=== PATIENT | female | born 1990 | race Caucasian/White ===

== ENCOUNTER 2017-09-04 13:21 | Emergency (ER) | payer OTHER ==
[~2017-09-04] VITALS: Ht 152.4 cm; Wt 61.6 kg
[2017-09-04 13:50] VITALS: BP 112/70
[2017-09-04 14:18] LABS: HEMATOCRIT 44.2 % (36.0-46.0); MCH 29.1 PG (29.0-34.0); MCHC 33.9 G/DL (30.0-36.0); MCV 85.7 FL (83-99); PLATELET COUNT 245 K/uL (156-360); RBC DIS.WIDTH-CV 12.5 % (11.8-14.6); RBC DIS.WIDTH-SD 39.4 % (39-53); RED BLOOD COUNT 5.16 M/uL (3.80-5.20); WHITE BLOOD COUNT 8.1 K/uL (4.1-10.2)
[2017-09-04 14:26] LABS: CHLORIDE 104 mEq/L (99-109); POTASSIUM 3.4 mEq/L (3.7-5.4); SODIUM 134 mEq/L (136-147)
[2017-09-04 14:28] LABS: GLUCOSE 97 mg/dL (70-99)
[2017-09-04 14:31] LABS: CREATININE 0.8 mg/dL (0.6-1.3)
[2017-09-04 14:32] LABS: GFR ESTIMATE (CALCULATED) > 59 mL/min/; UREA NITROGEN (BUN) 6 mg/dL (9-23)
[2017-09-04 14:40] LABS: TROP-I INTERPRETATION NEGATIVE; TROPONIN-I < 0.01 ng/mL (0.0-0.30)
[2017-09-04 16:32] LABS: ALBUMIN 4.3 g/dL (3.2-4.8)
[2017-09-04 16:35] LABS: TOTAL PROTEIN 7.4 g/dL (6.4-8.3)
[2017-09-04 16:37] LABS: TOTAL BILIRUBIN 1.4 mg/dL (0.0-1.0)
[2017-09-04 16:38] LABS: ALKALINE PHOSPHATASE 51 IU/L (3-129)
[2017-09-04 16:40] LABS: AST (GOT) 12 IU/L (2-34); DIRECT BILIRUBIN 0.4 mg/dL (0.0-0.3)
[2017-09-04 16:40] LABS: APPEARANCE SL.HAZY ((CLEAR)); BILIRUBIN NEGATIVE; BLOOD NEGATIVE; COLOR YELLOW ((YELLOW)); GLUCOSE (STRIP) NEGATIVE; KETONES 80; LEUKOCYTES NEGATIVE; NITRITE NEGATIVE; PROTEIN (STRIP) 30; SPECIFIC GRAVITY 1.025 (1.000-1.030)
[2017-09-04 16:41] LABS: ALT (GPT) 12 IU/L (3-49); LIPASE 13 U/L (1.0-51.0)
[2017-09-04 16:45] LABS: BACTERIA RARE /HPF; CALCIUM OXALATE CRYSTALS 1+ /HPF; EPITHELIAL CELLS 2+ /HPF; MUCUS 2+ /LPF; RED BLOOD CELLS 0-5 /HPF (0-5); WHITE BLOOD CELLS 0-5 /HPF (0-5)
[2017-09-04 17:08] LABS: QUANTITATIVE HCG 30568.7 MIU/ML
[2017-09-04] MEDS ORDERED: ZOFRAN ODT4 MG PO (17:14)
== END 2017-09-04 18:24 | disposition home or self-care (01) ==
LOC: EME 13:21
PROVIDERS: Nurse Practitioner Family
DX: O21.9 Vomiting of pregnancy, unspecified (principal); Z3A.00 Weeks of gestation of pregnancy not specified; Z88.0 Allergy status to penicillin
CPT/HCPCS: 71020; 80048; 80076; 81003; 83690; 84484; 84702; 85027; 93005; 99281; 99284; J2405; J7030

== ENCOUNTER 2017-09-15 16:38 | Emergency (ER) | payer OTHER ==
[~2017-09-15] VITALS: Ht 154.9 cm; Wt 61.1 kg
[~2017-09-15 16:38] MED LIST: ZOFRAN ODT4 MG PO
[2017-09-15 17:32] LABS: APPEARANCE SL.HAZY ((CLEAR)); BILIRUBIN NEGATIVE; BLOOD NEGATIVE; COLOR YELLOW ((YELLOW)); GLUCOSE (STRIP) NEGATIVE; KETONES 80; LEUKOCYTES TRACE; NITRITE NEGATIVE; PROTEIN (STRIP) 30; SPECIFIC GRAVITY 1.026 (1.000-1.030); UROBILINOGEN 0.2 MG/DL (0.2-1.0)
[2017-09-15 17:38] LABS: BACTERIA 1+ /HPF; EPITHELIAL CELLS 1+ /HPF; MUCUS 2+ /LPF; UCUL ADDED? YES
[2017-09-15 17:43] LABS: HEMATOCRIT 40.3 % (36.0-46.0); HEMOGLOBIN 13.7 G/DL (11.9-15.5); MCH 29.1 PG (29.0-34.0); MCV 85.7 FL (83-99); PLATELET COUNT 186 K/uL (156-360); RBC DIS.WIDTH-CV 12.4 % (11.8-14.6); RBC DIS.WIDTH-SD 38.8 % (39-53); WHITE BLOOD COUNT 9.5 K/uL (4.1-10.2)
[2017-09-15 17:52] LABS: CHLORIDE 106 mEq/L (99-109); POTASSIUM 3.8 mEq/L (3.7-5.4); SODIUM 134 mEq/L (136-147)
[2017-09-15 17:55] LABS: GLUCOSE 85 mg/dL (70-99); TOTAL PROTEIN 6.4 g/dL (6.4-8.3)
[2017-09-15 17:56] LABS: TOTAL BILIRUBIN 1.2 mg/dL (0.0-1.0)
[2017-09-15 17:58] LABS: ALKALINE PHOSPHATASE 45 IU/L (3-129); CREATININE 0.7 mg/dL (0.6-1.3); GFR ESTIMATE (CALCULATED) > 59 mL/min/
[2017-09-15 17:59] LABS: UREA NITROGEN (BUN) 7 mg/dL (9-23)
[2017-09-15 18:00] LABS: AST (GOT) 15 IU/L (2-34)
[2017-09-15 18:01] LABS: ALT (GPT) 15 IU/L (3-49)
[2017-09-15 18:02] LABS: LIPASE 7 U/L (1.0-51.0)
[2017-09-15 18:33] LABS: QUANTITATIVE HCG 77445.9 MIU/ML
[2017-09-15] MEDS ORDERED: ZOFRAN4 MG PO (18:44)
[2017-09-15 20:32] VITALS: BP 130/78
== END 2017-09-15 20:33 | disposition home or self-care (01) ==
LOC: EME 16:38
PROVIDERS: Physician Assistant
DX: O21.9 Vomiting of pregnancy, unspecified (principal); Z3A.08 8 weeks gestation of pregnancy; Z88.0 Allergy status to penicillin
CPT/HCPCS: 80053; 81003; 83690; 84702; 85027; 87077; 87086; 99281; 99284; J1200; J2405; J2765; J7030; S0028

== ENCOUNTER 2017-10-17 22:56 | Emergency (ER) | payer OTHER ==
[~2017-10-17] VITALS: Ht 154.9 cm; Wt 59.8 kg
[~2017-10-17 22:56] MED LIST changes: +ZOFRAN4 MG PO
[2017-10-18 00:20] LABS: HEMATOCRIT 37.5 % (36.0-46.0); MCH 29.7 PG (29.0-34.0); MCHC 34.7 G/DL (30.0-36.0); MCV 85.6 FL (83-99); PLATELET COUNT 187 K/uL (156-360); RBC DIS.WIDTH-CV 12.4 % (11.8-14.6); RBC DIS.WIDTH-SD 38.6 % (39-53); RED BLOOD COUNT 4.38 M/uL (3.80-5.20); WHITE BLOOD COUNT 7.5 K/uL (4.1-10.2)
[2017-10-18 00:33] LABS: APPEARANCE CLEAR ((CLEAR)); BILIRUBIN NEGATIVE; BLOOD NEGATIVE; COLOR YELLOW ((YELLOW)); GLUCOSE (STRIP) NEGATIVE; KETONES NEGATIVE; LEUKOCYTES TRACE; NITRITE NEGATIVE; PROTEIN (STRIP) NEGATIVE; SPECIFIC GRAVITY 1.024 (1.000-1.030); UROBILINOGEN 0.2 MG/DL (0.2-1.0)
[2017-10-18 00:36] LABS: ALBUMIN 3.8 g/dL (3.2-4.8)
[2017-10-18 00:37] LABS: CHLORIDE 107 mEq/L (99-109); SODIUM 137 mEq/L (136-147)
[2017-10-18 00:39] LABS: GLUCOSE 74 mg/dL (70-99); TOTAL PROTEIN 6.4 g/dL (6.4-8.3)
[2017-10-18 00:41] LABS: TOTAL BILIRUBIN 0.5 mg/dL (0.0-1.0)
[2017-10-18 00:42] LABS: ALKALINE PHOSPHATASE 46 IU/L (3-129)
[2017-10-18 00:43] LABS: CREATININE 0.6 mg/dL (0.6-1.3); GFR ESTIMATE (CALCULATED) > 59 mL/min/
[2017-10-18 00:43] LABS: BACTERIA 1+ /HPF; CALCIUM OXALATE CRYSTALS 2+ /HPF; EPITHELIAL CELLS 1+ /HPF; MUCUS TRACE /LPF; RED BLOOD CELLS 0-5 /HPF (0-5)
[2017-10-18 00:44] LABS: AST (GOT) 13 IU/L (2-34); UREA NITROGEN (BUN) 7 mg/dL (9-23)
[2017-10-18 00:46] LABS: ALT (GPT) 10 IU/L (3-49); LIPASE 21 U/L (1.0-51.0)
[2017-10-18 01:23] LABS: QUANTITATIVE HCG 33951.5 MIU/ML
[2017-10-18] MEDS ORDERED: KEFLEX500 MG PO (02:41)
[2017-10-18] MEDS ORDERED: ZOFRAN4 MG PO (02:50)
[2017-10-18 02:58] VITALS: BP 138/72
== END 2017-10-18 03:00 | disposition home or self-care (01) ==
LOC: EME 22:56
PROVIDERS: Physician Assistant
DX: O23.41 Unspecified infection of urinary tract in pregnancy, first trimester (principal); O20.0 Threatened abortion; O99.511 Diseases of the respiratory system complicating pregnancy, first trimester; J02.8 Acute pharyngitis due to other specified organisms; Z3A.12 12 weeks gestation of pregnancy; Z88.0 Allergy status to penicillin
CPT/HCPCS: 76801; 80053; 81003; 83690; 84702; 85027; 87502; 87651 90; 99281; 99284

== ENCOUNTER 2017-12-04 19:32 | Emergency (ER) | payer OTHER ==
[~2017-12-04] VITALS: Ht 154.9 cm; Wt 59.0 kg
[~2017-12-04 19:32] MED LIST changes: +KEFLEX500 MG PO
[2017-12-04 20:05] LABS: HEMATOCRIT 35.6 % (36.0-46.0); HEMOGLOBIN 12.1 G/DL (11.9-15.5); MCH 29.4 PG (29.0-34.0); MCV 86.4 FL (83-99); PLATELET COUNT 179 K/uL (156-360); RBC DIS.WIDTH-CV 12.9 % (11.8-14.6); RBC DIS.WIDTH-SD 40.4 % (39-53); RED BLOOD COUNT 4.12 M/uL (3.80-5.20); WHITE BLOOD COUNT 10.5 K/uL (4.1-10.2)
[2017-12-04 20:26] LABS: ALBUMIN 3.6 g/dL (3.2-4.8); CHLORIDE 107 mEq/L (99-109); POTASSIUM 3.5 mEq/L (3.7-5.4); SODIUM 137 mEq/L (136-147)
[2017-12-04 20:26] LABS: APPEARANCE SL.HAZY ((CLEAR)); BILIRUBIN NEGATIVE; BLOOD NEGATIVE; COLOR YELLOW ((YELLOW)); GLUCOSE (STRIP) NEGATIVE; KETONES NEGATIVE; LEUKOCYTES TRACE; NITRITE NEGATIVE; PROTEIN (STRIP) NEGATIVE; SPECIFIC GRAVITY 1.012 (1.000-1.030); UROBILINOGEN 0.2 MG/DL (0.2-1.0)
[2017-12-04 20:28] LABS: GLUCOSE 81 mg/dL (70-99); TOTAL PROTEIN 6.4 g/dL (6.4-8.3)
[2017-12-04 20:30] LABS: TOTAL BILIRUBIN 0.6 mg/dL (0.0-1.0)
[2017-12-04 20:31] LABS: ALKALINE PHOSPHATASE 47 IU/L (3-129)
[2017-12-04 20:32] LABS: CREATININE 0.6 mg/dL (0.6-1.3); GFR ESTIMATE (CALCULATED) > 59 mL/min/
[2017-12-04 20:33] LABS: AST (GOT) 14 IU/L (2-34); UREA NITROGEN (BUN) 8 mg/dL (9-23)
[2017-12-04 20:35] LABS: ALT (GPT) 11 IU/L (3-49)
[2017-12-04 20:40] LABS: BACTERIA 2+ /HPF; EPITHELIAL CELLS 1+ /HPF; MUCUS TRACE /LPF; RED BLOOD CELLS 0-5 /HPF (0-5); UCUL ADDED? YES
[2017-12-05 00:33] VITALS: BP 106/68
== END 2017-12-05 00:42 | disposition home or self-care (01) ==
LOC: EME 19:32
DX: O26.892 Other specified pregnancy related conditions, second trimester (principal); W10.9XXA Fall (on) (from) unspecified stairs and steps, initial encounter; O36.8120 Decreased fetal movements, second trimester, not applicable or unspecified; M54.9 Dorsalgia, unspecified; R10.9 Unspecified abdominal pain; Z3A.19 19 weeks gestation of pregnancy; Z88.0 Allergy status to penicillin
CPT/HCPCS: 72070; 76805; 80053; 81003; 83030; 84702; 85027; 86850; 86900; 86901; 87086; 99281; 99285; J2790

== ENCOUNTER → 2018-03-07 | Outpatient (CLI) | payer OTHER ==
[~2018-03-07] VITALS: Ht 152.4 cm; Wt 66.0 kg
[2018-03-07 11:11] VITALS: BP 166/75
== END | disposition home or self-care (01) ==
LOC: IVINF 02-28 10:00
DX: Z34.83 Encounter for supervision of other normal pregnancy, third trimester (principal); Z31.82 Encounter for Rh incompatibility status; Z3A.31 31 weeks gestation of pregnancy; Z67.91 Unspecified blood type, Rh negative
CPT/HCPCS: 96372; J2790

== ENCOUNTER 2018-03-21 09:07 | Emergency (ER) | payer OTHER ==
[~2018-03-21] VITALS: Ht 154.9 cm; Wt 75.5 kg
[2018-03-21 09:43] LABS: HEMATOCRIT 31.6 % (36.0-46.0); HEMOGLOBIN 10.4 G/DL (11.9-15.5); MCHC 32.9 G/DL (30.0-36.0); MCV 85.2 FL (83-99); NRBC (%) 0.2 /100 WBC (0-0); PLATELET COUNT 154 K/uL (156-360); RBC DIS.WIDTH-CV 13.7 % (11.8-14.6); RBC DIS.WIDTH-SD 42.6 % (39-53); RED BLOOD COUNT 3.71 M/uL (3.80-5.20)
[2018-03-21 09:52] LABS: PTT 23.3 SEC (25-37)
[2018-03-21 09:54] LABS: CHLORIDE 107 mEq/L (99-109); POTASSIUM 3.6 mEq/L (3.7-5.4); SODIUM 137 mEq/L (136-147)
[2018-03-21 09:56] LABS: GLUCOSE 106 mg/dL (70-99)
[2018-03-21 10:00] LABS: CREATININE 0.6 mg/dL (0.6-1.3); GFR ESTIMATE (CALCULATED) > 59 mL/min/; UREA NITROGEN (BUN) 6 mg/dL (9-23)
[2018-03-21 10:04] LABS: TROP-I INTERPRETATION NEGATIVE; TROPONIN-I < 0.01 ng/mL (0.0-0.30)
[2018-03-21 14:54] LABS: ALBUMIN 3.3 g/dL (3.2-4.8)
[2018-03-21 14:57] LABS: TOTAL PROTEIN 6.3 g/dL (6.4-8.3)
[2018-03-21 14:59] LABS: TOTAL BILIRUBIN 0.6 mg/dL (0.0-1.0)
[2018-03-21 15:00] LABS: ALKALINE PHOSPHATASE 116 IU/L (3-129)
[2018-03-21 15:02] LABS: AST (GOT) 14 IU/L (2-34); DIRECT BILIRUBIN 0.2 mg/dL (0.0-0.3)
[2018-03-21 15:03] LABS: ALT (GPT) 10 IU/L (3-49)
[2018-03-21 15:44] VITALS: BP 93/73
== END 2018-03-21 15:44 | disposition home or self-care (01) ==
LOC: EME 09:07
PROVIDERS: Emergency Medicine
DX: O26.893 Other specified pregnancy related conditions, third trimester (principal); M54.9 Dorsalgia, unspecified; Z3A.34 34 weeks gestation of pregnancy; O99.89 Other specified diseases and conditions complicating pregnancy, childbirth and the puerperium; R07.89 Other chest pain; R06.02 Shortness of breath; O99.413 Diseases of the circulatory system complicating pregnancy, third trimester; R01.1 Cardiac murmur, unspecified; Z88.0 Allergy status to penicillin; Z88.1 Allergy status to other antibiotic agents; Z91.09 Other allergy status, other than to drugs and biological substances
CPT/HCPCS: 71275; 80048; 80076; 84484; 85027; 85379; 85610; 85730; 93005; 93970; 99281; 99284; J2405

== ENCOUNTER 2018-04-05 17:08 | Outpatient (CLI) | payer OTHER ==
[2018-04-05 17:27] VITALS: BP 120/66
== END 2018-04-05 18:48 | disposition home or self-care (01) ==
LOC: LDRP-OP 17:08 → 2WEST 17:09 → LDRP-OP 05-31 09:18
DX: O26.893 Other specified pregnancy related conditions, third trimester (principal); M54.5 Low back pain; Z3A.36 36 weeks gestation of pregnancy
CPT/HCPCS: 59025; G0378

== ENCOUNTER 2018-04-26 15:35 | Outpatient (CLI) | payer OTHER ==
[2018-04-26 15:56] VITALS: BP 121/71
== END 2018-04-26 18:00 | disposition home or self-care (01) ==
LOC: LDRP-OP 15:35 → 2WEST 15:36 → LDRP-OP 05-31 19:21
DX: O47.1 False labor at or after 37 completed weeks of gestation (principal); Z3A.39 39 weeks gestation of pregnancy
CPT/HCPCS: 59025; G0378

== ENCOUNTER 2018-04-30 15:42 | Outpatient (CLI) | payer OTHER ==
[2018-04-30 16:08] VITALS: BP 118/69
[2018-05-01] MEDS ORDERED: IBUPROFEN800 MG PO (18:50)
== END 2018-04-30 17:30 | disposition home or self-care (01) ==
LOC: LDRP-OP 15:42 → 2WEST 15:43 → LDRP-OP 05-01 10:48
DX: O47.1 False labor at or after 37 completed weeks of gestation (principal); Z3A.40 40 weeks gestation of pregnancy; Z86.19 Personal history of other infectious and parasitic diseases; Z87.440 Personal history of urinary (tract) infections
CPT/HCPCS: 59025; G0378

== ENCOUNTER 2018-05-01 07:28 | Inpatient (IN) | payer OTHER ==
[2018-05-01] VITALS (18 sets, daily range): BP systolic 105–125; BP diastolic 53–74
[~2018-05-01] VITALS: Ht 152.4 cm; Wt 79.3 kg
[2018-05-01 08:42] LABS: BASOPHIL (%) 0.4 % (0-1); EOSINOPHIL (%) 0.6 % (0-5); EOSINOPHIL COUNT 0.1 K/uL (0-0.3); HEMATOCRIT 29.9 % (36.0-46.0); HEMOGLOBIN 9.5 G/DL (11.9-15.5); IMMATURE GRANULOCYTE (%) 0.4 % (0.0-0.7); LYMPHOCYTE (%) 19.5 % (15-42); LYMPHOCYTE COUNT 1.5 K/uL (1.0-2.8); MCH 26.2 PG (29.0-34.0); MCHC 31.8 G/DL (30.0-36.0); MCV 82.4 FL (83-99); MONOCYTE (%) 10.3 % (3-12); MONOCYTE COUNT 0.8 K/uL (0-0.8); NEUTROPHIL (%) 68.8 % (45-76); NEUTROPHIL COUNT 5.4 K/uL (1.8-6.4); PLATELET COUNT 138 K/uL (156-360); RBC DIS.WIDTH-CV 14.5 % (11.8-14.6); RBC DIS.WIDTH-SD 43.1 % (39-53); RED BLOOD COUNT 3.63 M/uL (3.80-5.20); WHITE BLOOD COUNT 7.8 K/uL (4.1-10.2)
[2018-05-01 15:19] LABS: AMPHETAMINE NEGATIVE (500 ng/mL); BARBITURATES NEGATIVE (200 ng/mL); BENZODIAZEPINES NEGATIVE (150 ng/mL); BUPRENORPHINE NEGATIVE (10 ng/mL); COCAINE NEGATIVE (150 ng/mL); METHADONE NEGATIVE (200 ng/mL); METHAMPHETAMINE NEGATIVE (500 ng/mL); OPIATES (MORPHINE) NEGATIVE (100 ng/mL); OXYCODONE NEGATIVE (100 ng/mL); PHENCYCLIDINE NEGATIVE (25 ng/mL); PROPOXYPHENE NEGATIVE (300 ng/mL); THC CANNABINOIDS NEGATIVE (50 ng/mL); TRICYCLIC ANTIDEPRESSANTS NEGATIVE (300 ng/mL)
[2018-05-01] MEDS ORDERED: IBUPROFEN800 MG PO (18:50)
[2018-05-02 06:45] VITALS: BP 102/51
[2018-05-02 15:10] VITALS: BP 132/69
[2018-05-02 22:37] VITALS: BP 118/58
== END 2018-05-03 15:20 | disposition home or self-care (01) | DRG 775 ==
LOC: LDRP-OP 07:28 → 2WEST 07:29 → LDRP-OP 17:46 → 2WEST 18:23 → LDRP-OP 05-31 17:41
PROVIDERS: Advanced Practice Midwife
DX: O75.89 Other specified complications of labor and delivery (principal); O69.81X0 Labor and delivery complicated by cord around neck, without compression, not applicable or unspecified; O26.893 Other specified pregnancy related conditions, third trimester; Z67.11 Type A blood, Rh negative; Z3A.40 40 weeks gestation of pregnancy; Z37.0 Single live birth
CPT/HCPCS: 59025; 83030; 85025; 86850; 86870; 86900; 86901; C1755; G0378; J2790; J3010; J7120